=== PATIENT | female | born 1985 | race Caucasian/White ===

== ENCOUNTER 2018-12-30 18:00 | Emergency (ER) | payer OTHER ==
[2018-12-30] MEDS: MECLIZINE 12.5 MG TAB PO (20:24)
== END 2018-12-30 21:18 | disposition home or self-care (01) ==
LOC: FTE 18:00
DX: F41.9 Anxiety disorder, unspecified (principal)
CPT/HCPCS: 93005; 99283-25

== ENCOUNTER 2019-06-18 21:40 | Emergency (ER) | payer BC, OTHER | END 2019-06-18 23:48 | disposition home or self-care (01) | LOC: FTE 21:40 | DX: S00.33XA Contusion of nose, initial encounter (principal); R40.2412 Glasgow coma scale score 13-15, at arrival to emergency department; F07.81 Postconcussional syndrome; W50.0XXA Accidental hit or strike by another person, initial encounter; Y92.9 Unspecified place or not applicable | CPT/HCPCS: 99282 ==